=== PATIENT | female | born 1955 | race Caucasian/White ===

== ENCOUNTER → 2021-10-24 08:07 | Outpatient (BNVA) | payer OTHER, SELFPAY | PROVIDERS: PCP Internal Medicine; Visit Provider Internal Medicine | DX: M54.16 Radiculopathy, lumbar region (principal); M96.1 Postlaminectomy syndrome, not elsewhere classified | CPT/HCPCS: 99202 ==

== ENCOUNTER 2021-11-15 11:43 | Outpatient (REF) | payer OTHER, SELFPAY ==
--- NOTE | ~2021-11-15 | MR_ITS ---
EXAMINATION: MR LUMBAR SPINE WITHOUT CONTRAST CLINICAL INFORMATION: Radiculopathy, lumbar region. Pain. COMPARISON: Plain films of the lumbar spine 11/21/2013. CT scan of the abdomen and pelvis 04/13/2014. TECHNIQUE: MRI of the lumbar spine was obtained using routine sequences without contrast. FINDINGS: VERTEBRAL BODIES AND PARASPINAL STRUCTURES: There is a slight dextroscoliosis. There is reversal of the lumbar lordosis at L4-L5. There is marked narrowing of intervertebral disc height at this level and there are degenerative endplate contour changes with mixed edematous and fatty endplate signal changes. There is mildly decreased signal from the intervertebral discs at multiple levels, relatively excluding L2-L3 and L5-S1. Vertebral body heights are maintained, and no fractures are demonstrated. Overall, marrow signal is homogenous. There is a left parapelvic renal cyst. The visualized pelvic structures are unremarkable. CONUS MEDULLARIS AND CAUDA EQUINA: Normal, terminating at the level of L1-L2. The lower thoracic spinal cord appears normal. The cauda equina nerve roots and filum terminale appear normal. SPINAL LEVELS: L1-L2: The facet joints appear normal. The mild diffuse disc bulge. There is no central stenosis or foraminal narrowing. L2-L3: The facet joints appear normal bilaterally. Disc contour is normal. There is no central stenosis or foraminal narrowing. L3-L4: There is moderate bilateral facet arthropathy with ligamenta flava hypertrophy and facet joint effusions. There is a posterior disc protrusion which is focally more prominent in the right neural foramen with impingement on the exiting right L3 nerve root. There is no central stenosis. L4-L5: There is moderate bilateral facet arthropathy. There is a posterior disc osteophyte complex extending into the inferior neural foramina bilaterally without definite exiting nerve root impingement. There is mild narrowing of the bilateral subarticular recesses, and there is mild central stenosis. L5-S1: There is mild bilateral facet arthropathy. Posterior disc contour is normal and there is no central stenosis or foraminal narrowing. MR/MR lumbar spine wo con IMPRESSION: 1. At L4-L5 there is moderate facet arthropathy. There is narrowing of intervertebral disc height with degenerative endplate signal changes. There is a posterior disc osteophyte complex without foraminal nerve root impingement. There is mild central stenosis. 2. At L3-L4 there is moderate facet arthropathy. There is a right foraminal disc protrusion with impingement on the exiting right L3 nerve root. There is no central stenosis.
== END 2021-11-15 11:44 | disposition home or self-care (01) ==
LOC: HO.MRI 11:43
PROVIDERS: Visit Provider Internal Medicine
DX: M54.16 Radiculopathy, lumbar region (principal)
CPT/HCPCS: 72148

== ENCOUNTER → 2021-12-16 08:29 | Outpatient (BNVA) | payer OTHER, SELFPAY | PROVIDERS: PCP Internal Medicine; Visit Provider Internal Medicine | DX: M54.16 Radiculopathy, lumbar region (principal); M96.1 Postlaminectomy syndrome, not elsewhere classified | CPT/HCPCS: 99212 ==

== ENCOUNTER 2022-03-01 06:20 | Outpatient (REF) | payer OTHER, SELFPAY ==
--- NOTE | ~2022-03-01 | FL_ITS ---
EXAMINATION: XR FLUOROSCOPY WITH IMAGES CLINICAL INFORMATION: Radiculopathy lumbar region. COMPARISON: MRI lumbar spine of 11/15/2021 TECHNIQUE: Fluoroscopy Supervised By: Sue Tsang. Fluoroscopy Time: 0.3 minutes. Cumulative Dose: 5.89 mGy. DAP: 0.708 Gycm2. Images: 2. FINDINGS: Intraoperative fluoroscopy demonstrates needle and contrast inferior to what appears to be the left L4 pedicle. FL/FL guidance in treatment room IMPRESSION: Intraoperative fluoroscopy for pain management procedure.
== END 2022-03-01 06:21 | disposition home or self-care (01) ==
LOC: CF 06:20
PROVIDERS: Visit Provider Internal Medicine
DX: M54.16 Radiculopathy, lumbar region (principal)
CPT/HCPCS: 64483; J1100

== ENCOUNTER 2022-03-08 06:11 | Outpatient (REF) | payer OTHER, SELFPAY ==
--- NOTE | ~2022-03-08 | FL_ITS ---
EXAMINATION: XR FLUOROSCOPY WITH IMAGES CLINICAL INFORMATION: Radiculopathy, lumbar region. COMPARISON: 03/01/2022. TECHNIQUE: Fluoroscopy Supervised By: Dr. Koffi Zimmerman. Fluoroscopy Time: 0.5 minutes. Cumulative Dose: 11.8 mGy. DAP: 1.49 Gycm2. Images: 2. FINDINGS: 2 needles are seen inferior to what appear to be the L3 and L4 right-sided pedicles. There is some adjacent contrast present. FL/FL guidance in treatment room IMPRESSION: Intraoperative fluoroscopy for pain management procedure.
== END 2022-03-08 06:12 | disposition home or self-care (01) ==
LOC: CF 06:11
PROVIDERS: Visit Provider Internal Medicine
DX: M54.16 Radiculopathy, lumbar region (principal); M96.1 Postlaminectomy syndrome, not elsewhere classified
CPT/HCPCS: 64483; 64484; J1100; J2795; Q9965

== ENCOUNTER → 2022-03-24 08:00 | Outpatient (BNVA) | payer OTHER, SELFPAY | PROVIDERS: PCP Internal Medicine; Visit Provider Internal Medicine | DX: M54.16 Radiculopathy, lumbar region (principal); M96.1 Postlaminectomy syndrome, not elsewhere classified | CPT/HCPCS: 99212 ==

== ENCOUNTER → 2022-06-16 08:36 | Outpatient (BNVA) | payer OTHER, SELFPAY | PROVIDERS: PCP Internal Medicine; Visit Provider Internal Medicine | DX: M54.16 Radiculopathy, lumbar region (principal) | CPT/HCPCS: 99212 ==

== ENCOUNTER 2022-08-09 06:06 | Outpatient (REF) | payer OTHER, SELFPAY ==
--- NOTE | ~2022-08-09 | FL_ITS ---
EXAMINATION: FL GUIDANCE IN TREATMENT ROOM CLINICAL INFORMATION: Postlaminectomy syndrome COMPARISON: None available. TECHNIQUE: Fluoroscopy Supervised By: Liv Lewis APRN Fluoroscopy Time: 0.5. Cumulative Dose: 8.10 mGy. DAP: 0.982 Gycm2. Images: 2. FINDINGS: There are 2 digital images obtained with needle positioned inferior to right L3 and L4 pedicle and contrast opacifying the soft tissues and epidural space. No lytic or sclerotic process seen. FL/FL guidance in treatment room IMPRESSION: Fluoroscopy was provided to referring physician for pain management.
== END 2022-08-09 06:07 | disposition home or self-care (01) ==
LOC: CF 06:06
PROVIDERS: Visit Provider Internal Medicine
DX: M96.1 Postlaminectomy syndrome, not elsewhere classified (principal); M54.16 Radiculopathy, lumbar region
CPT/HCPCS: 64483; 64484; J1100

== ENCOUNTER → 2022-09-08 09:11 | Outpatient (BNVA) | payer OTHER, SELFPAY | PROVIDERS: PCP Internal Medicine; Visit Provider Internal Medicine | DX: M47.816 Spondylosis without myelopathy or radiculopathy, lumbar region (principal) | CPT/HCPCS: 99212 ==

== ENCOUNTER 2022-12-13 06:12 | Outpatient (REF) | payer OTHER, SELFPAY ==
--- NOTE | ~2022-12-13 | FL_ITS ---
EXAMINATION: XR FLUOROSCOPY WITH IMAGES CLINICAL INFORMATION: Spondylosis without myelopathy or radiculopathy, lumbar region. COMPARISON: None available. TECHNIQUE: Fluoroscopy Supervised By: Dr. Koffi Zimmerman. Fluoroscopy Time: 0.1 minute. Cumulative Dose: 2.16 mGy. DAP: 0.318 Gycm2. Images: 2. FINDINGS: Images demonstrate needle placement and bilateral lateral epidural contrast injection at L3, L4 and L5 FL/FL guidance in treatment room IMPRESSION: Fluoroscopy guidance for pain management procedure
== END 2022-12-13 06:13 | disposition home or self-care (01) ==
LOC: CF 06:12
PROVIDERS: Visit Provider Internal Medicine
DX: M47.816 Spondylosis without myelopathy or radiculopathy, lumbar region (principal)
CPT/HCPCS: 64493; 64494

== ENCOUNTER 2022-12-13 09:56 | Outpatient (AMB) | payer OTHER, SELFPAY ==
[2022-12-13 10:03] VITALS: BP 110/68; PULSE 95; RESP 14; O2SAT 96
--- NOTE | 2022-12-13 10:03 | MHC.OFFVIS ---
Intake Vital Signs 12/13/22 10:03 12/13/22 10:46 BP 110/68 124/70 Blood Pressure Location Lt brachial Lt brachial Position Sitting Sitting Respiration 14 14 Pulse 95 95 Pulse Source Pulse Oximeter Pulse Oximeter Pulse Oximetry (%) 96 94 Oxygen Delivery Method Room Air Room Air Intake Visit Reasons: dony Dx L3-L4-L5 MBB Allergies codeine Allergy (Unknown, Verified 12/13/22 10:04) vomiting HPI dony Dx L3-L4-L5 MBB HPI Details Patient presents for scheduled procedure. Denies any recent cough, cold, infection, fever or other significant changes in medical history since last office visit. [facility] Medical History (Updated 09/12/22 @ 13:42 by Koffi Zimmemran MD) Pulmonary HTN EDGARD (obstructive sleep apnea) Osteopenia Back pain Anxiety Migraine headache COPD (chronic obstructive pulmonary disease) Hyperlipidemia Depression Overactive bladder Acute kidney injury BMI less than 19,adult Mass of left side of neck Closed fracture of bone of right foot Chronic right shoulder pain Surgical History (Updated 10/24/21 @ 08:36 by Sincere Morales) H/O: hysterectomy Hx of cholecystectomy History of back surgery History of appendectomy Physical Exam Vital Signs: Last Vital Signs Pulse 95 12/13/22 10:03 Resp 14 12/13/22 10:03 BP 110/68 12/13/22 10:03 Pulse Ox 96 12/13/22 10:03 Oxygen Delivery Method Room Air 12/13/22 10:03 Office Procedures Lumbar/Sacral Facet Inj Details: Lumbar Medial Branch Block, Bilateral L3, L4 medial branches and L5 Dorsal Ramus (2 levels, 3 nerves) After obtaining written consent, pre-procedure blood pressure and pulse were recorded and are in the nursing record for review. The patient was placed in a prone position. The respective lumbosacral area was prepped with chloraprep and draped in sterile fashion. The skin over the target medial branch nerves was anesthetized with 0.5% lidocaine. A 22 gauge 3.5 inch needle was inserted into the target medial branch nerve under fluoroscopic guidance. No paresthesias were elicited with needle placement and aspiration was negative for blood and CSF. Next, 0.2cc of omnipaque 180 was injected to verify positioning. Next 0.5 ml 0.5% ropivicaine was injected (0.5cc total per level). The identical procedure was performed at the remaining levels. The skin was cleansed and a sterile bandage was applied. Following the procedure the patient's vital signs were stable. The patient tolerated the procedure well and no complications were encountered. Following the procedure the patient's vital signs were stable. The patient was discharged home in good condition with post-procedural instructions. Time Out: Immediately prior to the procedure, the following was verbally confirmed that there is a signed consent form and that the correct patient, planned procedure, site and side are consistent with documentation and that necessary equipment and/or blood products are available prior to the start of the case. Complications: none EBL: <5 cc 59748 - second level, with Fluoroscopy (bilateral) Procedure code (CPT) selection complete Assessment & Plan Assessment & Plan (1) Lumbar spondylosis: Code(s): M47.816 - Spondylosis without myelopathy or radiculopathy, lumbar region Plan Patient is status post bilateral L3, L4 MB and L5 DR diagnostic blocks. Patient tolerated procedure well and was discharged home in stable condition with discharge instructions. All questions were answered. We will follow-up via telephone or in clinic to assess response to therapy. A follow-up appointment was made during today's visit. Orders: Orders FL guidance in treatment room Today M47.816 - Spondylosis without myelopathy or radiculopathy, lumbar region Coding Level of Care Code Procedure Only Diagnoses Lumbar spondylosis M47.816 CPT Codes Facet Injection-Lumbar/Sacral - CPT: 48213 - second level, with Fluoroscopy ([id number])
[2022-12-13 10:46] VITALS: BP 124/70; PULSE 95; RESP 14; O2SAT 94
== END 2022-12-13 10:42 | disposition home or self-care (01) ==
LOC: HO.PMCPRC 09:56
PROVIDERS: PCP Internal Medicine; Visit Provider Internal Medicine
DX: M47.816 Spondylosis without myelopathy or radiculopathy, lumbar region (principal)
CPT/HCPCS: 64493; 64494

== ENCOUNTER 2022-12-15 11:22 | Outpatient (AMB) | payer OTHER, SELFPAY ==
--- NOTE | 2022-12-15 11:30 | A.OFFVIS_ITS ---
Intake Vital Signs 12/15/22 11:31 Height 5 ft 6 in BP 126/74 Blood Pressure Location Lt brachial Position Sitting Respiration 14 Pulse 89 Pulse Source Pulse Oximeter Pulse Oximetry (%) 93 Oxygen Delivery Method Room Air Intake Visit Reasons: s/p dony Dx L3-L4-L5 MBB Allergies codeine Allergy (Unknown, Verified 12/15/22 11:33) vomiting Medication List - Last Reconciled 12/15/22 by Sarah Bernal LPN cyclobenzaprine 5 mg PO DAILY gabapentin 300 mg PO BEDTIME meclizine 25 mg PO DAILY meloxicam 7.5 mg PO BID PRN sertraline 100 mg PO DAILY HPI s/p dony Dx L3-L4-L5 MBB HPI Details 67-year-old female who presents today to the office for a status post bilateral diagnostic L3-L4-L5 MBB. The patient reports 80% relief for 2 days following the procedure with return of symptoms thereafter. Her right side is worse than the left side. Past procedures: 12/13/22: Lumbar Medial Branch Block, Bi lateral L3, L4 medial branches and L5 Dorsal Ramus (2 levels, 3 nerves): 80% relief for 2 days 08/09/2022: Transforaminal epidural ster oid injection, Right L3/4 and L4/5: 80% relief for 2 weeks. 03/08/2022: Transforaminal epidural ster oid injection, Right L3/4 and L4/5: 3 months of 70% relief that stopped after a fall. 03/01/22: Transforaminal epidural steroi d injection, Left L4: 3 months of straighter than 70% relief. [facility] Medical History (Updated 12/21/22 @ 15:56 by Koffi Zimmerman MD) Pulmonary HTN EDGARD (obstructive sleep apnea) Osteopenia Back pain Anxiety Migraine headache COPD (chronic obstructive pulmonary disease) Hyperlipidemia Depression Overactive bladder Acute kidney injury BMI less than 19,adult Mass of left side of neck Closed fracture of bone of right foot Chronic right shoulder pain Surgical History (Updated 10/24/21 @ 08:36 by Sincere Morales) H/O: hysterectomy Hx of cholecystectomy History of back surgery History of appendectomy Review of Systems Const All systems reviewed & are unremarkable except as noted in HPI and below Physical Exam Vital Signs: Last Vital Signs Pulse 89 12/15/22 11:31 Resp 14 12/15/22 11:31 BP 126/74 12/15/22 11:31 Pulse Ox 93 12/15/22 11:31 Oxygen Delivery Method Room Air 12/15/22 11:31 General: Appears afebrile. Alert and oriented. Mood and affect appropriate. Follows and participates in conversation appropriately. Respiratory effort is unlabored. Able to transition from sit to stand unassisted. Ambulates with bilaterally normal heel strike and toe off. Results Reviewed Results Reviewed: No imaging is available for review. Assessment & Plan Assessment & Plan (1) Lumbar spondylosis: Code(s): M47.816 - Spondylosis without myelopathy or radiculopathy, lumbar region (2) Failed back surgical syndrome: Code(s): M96.1 - Postlaminectomy syndrome, not elsewhere classified (3) Intractable low back pain: Code(s): M54.59 - Other low back pain Plan Discussed peripheral nerve stimulator placement vs. RFA as possible treatment options for chronic low back pain. Will schedule her for right L3 medial branch nerve stimulation lead placement. Discussed the risks and benefits of the procedure with the patient in detail. All questions were answered. The patient is on board with the plan. A device brochure was provided to the patient. Justification for interventional therapy: ? Patient with average pain > 6/10 ? Patient has exhausted conservative therapy including muscle relaxants, neuropathics, PT, HEP Scribed for Dr. Zimmerman by Ector Zheng, medical clerk, on 12/15/2022. I, Dr. Zimmerman, have personally reviewed and agree with the information entered by the scribe. Coding Level of Care Code Est Pt Level 3 (74648) Diagnoses Lumbar spondylosis M47.816 Failed back surgical syndrome M96.1 Intractable low back pain M54.59
[2022-12-15 11:31] VITALS: BP 126/74; PULSE 89; RESP 14; O2SAT 93
== END 2022-12-15 11:46 | disposition home or self-care (01) ==
PROVIDERS: PCP Internal Medicine; Visit Provider Internal Medicine
DX: M47.816 Spondylosis without myelopathy or radiculopathy, lumbar region (principal); M96.1 Postlaminectomy syndrome, not elsewhere classified; M54.59 Other low back pain
CPT/HCPCS: 99213

== ENCOUNTER → 2022-12-15 11:22 | Outpatient (BNVA) | payer OTHER, SELFPAY | PROVIDERS: PCP Internal Medicine; Visit Provider Internal Medicine | DX: M47.816 Spondylosis without myelopathy or radiculopathy, lumbar region (principal); M96.1 Postlaminectomy syndrome, not elsewhere classified; M54.59 Other low back pain | CPT/HCPCS: 99212 ==